=== PATIENT | male | born 1980 | race African-American/Black ===

== ENCOUNTER 2017-10-10 03:10 | Emergency (ER) | payer OTHER ==
[2017-10-10] MEDS ORDERED: Acetaminophen 500 MG TAB ONE (05:43)
--- NOTE | 2017-10-10 07:55 | CT ---
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 Incident witnessed by other inmates, pt woke from sleep after impact, stood up on his own. De nies nausea, vomiting, vision changes, headache. Contusion and abrasion to r parietal scalp. Tetanus proph ylaxis utd. TECHNIQUE: Axial computed tomography images of the head/brain without intravenous contrast. All CT scans at this facility use one or more dose reduction techniques, viz.: automated exposure control; ma/kV adjustme nt per patient size (including targeted exams where dose is matched to indication; i.e. head); or ite rative reconstruction technique. COMPARISON: No relevant prior studies available. FINDINGS: Brain: Mild volume loss No hemorrhage. No significant white matter disease. No edema. Ventricles: Unremarkable. No ventriculomegaly. Bones/joints: Unremarkable. No acute fracture. Soft tissues: Right parietal scalp swelling noted Sinuses: Secretions in the left maxillary sinus No acute sinusitis. Minimal mucosal thickening in the inferior frontal sinuses Mastoid air cells: Unremarkable as visualized. No mastoid effusion. IMPRESSION: No intracranial hemorrhage.Please see discussion above. Thank you for allowing us to participate in the care of your patient. Dictated and Authenticated by: Devante Michel MD 10/10/2017 4:42 AM Central Time ([place] & [place]) FINAL REPORT HEAD CT NONCONTRAST: I agree with the preliminary interpretation provided above. FINDINGS/IMPRESSION: No intracranial hemorrhage or masses. POS: [facility]
--- NOTE | 2017-10-10 14:00 | CT ---
PRELIMINARY REPORT/[facility]/EMERGENCY AFTER HOURS PROCEDURE: EXAM: CT Cervical Spine Without Intravenous Contrast CLINICAL HISTORY: 36 years old, male; Pain and injury or trauma; Fall; Initial encounter; Sprain or strain, cervical li gaments; Neck pain; Injury date: 10-10-2017; Injury details: 36m inmate at [facility] with pmhx "ce rvical spinal protrusion" with surgery for same in 2014 C/O fall from top bunk 5 feet in the air whil e sleeping, landing on r side head and shoulder, shortly before ed arrival. Incident witnessed by ot er inmates, pt woke from sleep after impact, stood up on his own. Denies nausea, vomiting, vision kathy nges, headache. Contusion and abrasion to r parietal scalp. Tetanus prophylaxis utd. 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 Incident witnessed by other inmates, pt woke from sleep after impact, stood up on his own. Denies nausea, vomiting, vision changes, headache. Contusion and abrasion to r parietal scal p. Tetanus prophylaxis utd. TECHNIQUE: Axial computed tomography images of the cervical spine without intravenous contrast. All CT scans at this facility use one or more dose reduction techniques, viz.: automated exposure control; ma/Kv adju stment per patient size (including targeted exams where dose is matched to indication; i.e. head); or iterative reconstruction technique. COMPARISON: No relevant prior studies available. FINDINGS: Vertebrae: No acute fracture. Discs/spinal canal/neural foramina: No acute findings. Mild congenital multilevel spinal canal stenos is. Soft tissues: Unremarkable. Lung apices: Unremarkable as visualized. IMPRESSION: No definite acute cervical fracture observed Mild congenital central canal stenosis Thank you for allowing us to participate in the care of your patient. Dictated and Authenticated by: Devante Michel MD 10/10/2017 4:52 AM Central Time ([place] & [place]) FINAL REPORT NONCONTRAST CT CERVICAL SPINE: FINDINGS/IMPRESSION: I agree with the preliminary interpretation provided. No acute fracture evident. POS: [facility]
== END 2017-10-10 05:52 | disposition home or self-care (01) ==
LOC: EEVIPCON 03:10 → ERS 03:10
DX: S00.01XA Abrasion of scalp, initial encounter (principal); W17.89XA Other fall from one level to another, initial encounter
CPT/HCPCS: 70450; 72126